=== PATIENT | female | born 1995 | race Caucasian/White ===

== ENCOUNTER 2024-09-10 21:15 | Inpatient (IN) | payer MEDICAID, SELFPAY ==
[2024-09-10 21:25] VITALS: BP 115/73; PULSE 153; RESP 18; TEMP 36.7; O2SAT 99; BMI 20.1
[2024-09-10 22:26] LABS: Basophils % 0.2 %; Eosinophils % 0.2 %; Hematocrit 43.9 % (36-47); Mean Corpuscular HGB Conc 31.2 g/dL (30-55); Mean Corpuscular Hemoglobin 26.9 pg (27-33); Mean Corpuscular Volume 86.1 fl (85-98); Mean Platelet Volume 11.2 fL (7.4-10.4); Monocytes # 0.4 10^3/uL (0.2-0.9); Monocytes % 4.6 %; Neutrophils # 5.57 10^3/uL (1.8-7.7); Neutrophils % 69.6 %; Nucleated Red Blood Cells % 0 %; Platelet Count 278 10^3/cmm (157-399); White Blood Count 8.01 10^3/uL (3.29-11.43)
[2024-09-10 22:35] LABS: Bilirubin Urine Negative (Negative); Blood Urine Negative (Negative); Glucose Urine UA Negative (Normal); Ketones Urine 3+ (Negative); Leukocyte Esterase Urine Negative (Negative); Nitrate Urine Negative (Negative); Protein Urine Negative (Negative); Specific Gravity, Urine 1.023 (1.005-1.030); Urine Appearance Clear (CLEAR); Urine Color Yellow (Yellow); pH Urine 5.5 (5-7)
[2024-09-10 22:40] LABS: Add Urine Microscopic? YES; Bacteria Urine Trace /hpf; Hyaline Casts Urine 1.65 /lpf; RBC Urine 0-2 /hpf (0-2); WBC Urine 0-5 /hpf (0-5)
[2024-09-10 22:43] LABS: Amphetamines Screen Urine Negative (Negative); Barbiturates Screen Urine Negative (Negative); Benzodiazepines Screen Urine Negative (Negative); Cocaine Screen Urine Negative (Negative); Opiate Screen Urine Negative (Negative); PCP Screen Urine Negative (Negative); THC Screen Urine Positive (Negative)
--- NOTE | 2024-09-10 22:46 | ED.C_ITS ---
HPI - Psych 2 General: Chief Complaint: Psychiatric Symptoms Stated Complaint: MHE Time Seen by Provider: 09/10/24 21:38 History of Present Illness: 29-year-old healthy female. She present s with ideation. She reports that she has had suicidal thoughts for some time, and family reports that she has admitted she worries herself driving her car, as she worries she could drive through the guardrail and intentionally crash. She has a history of depression. She was last admitted to psychiatric facility in eighth grade she says. She admits to marijuana use. Denies other substances. She is healthy otherwise. She has a history of cholecystectomy. Related Data Home Medications Medication Instructions Recorded Confirmed No Known Home Medications 09/10/24 09/10/24 Allergies Allergy/AdvReac Type Severity Reaction Status Date / Time codeine Allergy ADR-Gastrointestinal Verified 09/10/24 21:25 Upset diphenhydramine Allergy ADR-Halluci Verified 09/10/24 21:25 nating [facility] ED 2 Female Reproductive History: Date of last menstrual period: 09/05/24 Physical Exam 2 Const: COMMON NORMALS: no acute distress GENERAL APPEARANCE: cooperative; not ill appearing and not frail appearing HENMT: COMMON NORMALS: normocephalic, atraumatic and Normal external nose present HEAD & SCALP: normocephalic and atraumatic FACE & SINUS: normal facial exam and face symmetric NOSE: Normal external nose present Eye: COMMON NORMALS: Equal, round and reactive pupils present and EOMs intact bilaterally PUPIL: Yes Equal, round and reactive pupils present Neck/C-Spine: GENERAL: Yes trachea midline Chest: CHEST: Yes Symmetrical chest wall rise Resp: COMMON NORMALS: normal respiratory effort, No retractions, No use of accessory muscles and clear to auscultation bilaterally AUSCULTATION: clear to auscultation bilaterally Cardio: COMMON NORMALS: regular rate and regular rhythm RATE: regular rate RHYTHM: regular rhythm GI: COMMON NORMALS: Normal to inspection, nondistended, normoactive bowel sounds present Extremity: COMMON NORMALS: no pedal edema Neuro: [place] COMA SCALE: document GCS findings [place] coma scale eye opening: Spontaneous [place] coma scale verbal response: Orientated [place] coma scale motor response: Obey commands [place] coma scale total score: 15 S ENSORY EXAM: Yes extremities (intact) Psych: COMMON NORMALS: speech normal SPEECH: Yes normal speech Skin: COMMON NORMALS: no rashes or lesions noted GENERAL SKIN EXAM: no rashes or lesions noted Course 2 Vital Signs: Vital signs: Vital Signs Temperature 98.0 F 09/10/24 21:25 Pulse Rate 132 H 09/11/24 00:09 Respiratory Rate 16 09/10/24 23:51 Blood Pressure 129/93 09/11/24 00:09 Pulse Oximetry 98 09/11/24 00:09 Oxygen Delivery Me thod Room Air 09/10/24 23:51 MDM - Psych Medical Decision Making Initially quite tachycardic. EKG shows sinus tachycardia without other abnormality. She admits to significant anxiety. Her heart rate is now down to 100. She is normotensive. She is afebrile. Drug screen is positive for marijuana only. CBC is normal. Urinalysis is negative. Spoke with psychiatry. They are willing to admit. When the patient found that she was going to be admitted, she became quite anxious. She actually left her room, and tried to elope from the ER. We were able to talk her back to her room. She is given an injection of Geodon with some improvement. Her heart rate became elevated again during her panic attack when she was trying to elope. It has since improved again. Because of the tachycardia, TSH was ordered on her initial laboratory, and is 0.01. This may be a cause of the patient's anxiety as well as her tachycardia. I have consulted the medicine/hospitalist service regarding this. Medically, she is still stable. She is not hypertensive. I have ordered free and total T4 as well as T3. They will consult on the patient in regards to the hyperthyroidism. Lab Data 09/10/24 22:12 09/10/24 22:12 Laboratory Results WBC 8.01 10^3/uL (3.29-11.43) 09/10/24 22:12 RBC 5.10 10^6/uL (3.85-5.65) 09/10/24 22:12 Hgb 13.70 g/dL (11.27-16.99) 09/10/24 22:12 Hct 43.9 % (36-47) 09/10/24 22:12 MCV 86.1 fl (85-98) 09/10/24 22:12 MCH 26.9 pg (27-33) L 09/10/24 22:12 MCHC 31.2 g/dL (30-55) 09/10/24 22:12 RDW 12.0 % (12.1-15.1) L 09/10/24 22:12 Plt Count 278 10^3/cmm (157-399) 09/10/24 22:12 MPV 11.2 fL (7.4-10.4) H 09/10/24 22:12 Neut % (Auto) 69.6 % 09/10/24 22:12 Lymph % (Auto) 25.0 % 09/10/24 22:12 [place] % (Auto) 4.6 % 09/10/24 22:12 Eos % (Auto) 0.2 % 09/10/24 22:12 Baso % (Auto) 0.2 % 09/10/24 22:12 Neut # (Auto) 5.57 10^3/uL (1.8-7.7) 09/10/24 22:12 Lymph # (Auto) 2.0 10^3/uL (0.8-4.8) 09/10/24 22:12 [place] # (Auto) 0.4 10^3/uL (0.2-0.9) 09/10/24 22:12 Eos # (Auto) 0.0 10^3/uL (0.0-0.8) 09/10/24 22:12 Baso # (Auto) 0.0 10^3/uL (0.0-0.1) 09/10/24 22:12 Nucleated RBC % (auto) 0 % 09/10/24 22:12 Nucleated RBCs # 0.0 /100WBC 09/10/24 22:12 Sodium 142 mmol/L (136-145) 09/10/24 22:12 Potassium 3.7 mmol/L (3.5-5.1) 09/10/24 22:12 Chloride 103 mmol/L (98-107) 09/10/24 22:12 Carbon Dioxide 23 mmol/L (22-29) 09/10/24 22:12 Anion Gap 19.7 (5-19) H 09/10/24 22:12 BUN 9 mg/dL (6-20) 09/10/24 22:12 Creatinine 0.3 mg/dL (0.5-0.9) L 09/10/24 22:12 GFR Calculation 264.9 mL/min (90-130) H 09/10/24 22:12 Glucose 107 mg/dL (65-115) 09/10/24 22:12 Calculated Osmolality 293 mOsm/kg (285-295) 09/10/24 22:12 Calcium 9.5 mg/dL (8.5-10.5) 09/10/24 22:12 Total Bilirubin 0.8 mg/dL (0.15-1.2) 09/10/24 22:12 AST 30 U/L (0-32) 09/10/24 22:12 ALT 33 U/L (0-33) 09/10/24 22:12 Alkaline Phosphatase 117 U/L (35-105) H 09/10/24 22:12 Total Protein 6.8 g/dL (6.6-8.7) 09/10/24 22:12 Albumin 4.0 g/dL (3.5-5.2) 09/10/24 22:12 Globulin 2.8 g/dL (1.3-4.6) 09/10/24 22:12 TSH 0.01 uIU/mL (0.27-4.20) L 09/10/24 22:12 Free T4 5.76 ng/dL (0.82-1.77) H 09/10/24 22:10 Free T3 22.1 PG/ML (2.0-4.4) H 09/10/24 22:12 Urine Color Yellow (Yellow) 09/10/24 22:21 Urine Appearance Clear (CLEAR) 09/10/24 22:21 Urine pH 5.5 (5-7) 09/10/24 22:21 Ur Specific [place] 1.023 (1.005-1.030) 09/10/24 22:21 Urine Protein Negative (Negative) 09/10/24 22:21 Urine Glucose (UA) Negative (Normal) 09/10/24 22:21 Urine Ketones 3+ (Negative) H 09/10/24 22:21 Urine Blood Negative (Negative) 09/10/24 22:21 Urine Nitrate Negative (Negative) 09/10/24 22:21 Urine Bilirubin Negative (Negative) 09/10/24 22:21 Urine Urobilinogen 1.0 mg/dL (Negative) 09/10/24 22:21 Ur Leukocyte Esterase Negative (Negative) 09/10/24 22:21 Urine RBC 0-2 /hpf (0-2) 09/10/24 22:21 Urine WBC 0-5 /hpf (0-5) 09/10/24 22:21 Ur Squamous Epith Cells 6-10 /hpf (0-5) 09/10/24 22:21 Amorphous Sediment Not Reportable 09/10/24 22:21 Urine Bacteria Trace /hpf (NONE) 09/10/24 22:21 Hyaline Casts 1.65 /lpf 09/10/24 22:21 Salicylates < 0.3 mg/dL (3-10) L 09/10/24 22:12 Urine Opiates Screen Negative ng/mL (Negative) 09/10/24 22:21 Acetaminophen < 5.0 ug/mL (10-30) L 09/10/24 22:12 Ur Barbiturates Screen Negative ng/mL (Negative) 09/10/24 22:21 Ur Phencyclidine Scrn Negative ng/mL (Negative) 09/10/24 22:21 Ur Amphetamines Screen Negative ng/mL (Negative) 09/10/24 22:21 U Benzodiazepines Scrn Negative ng/mL (Negative) 09/10/24 22:21 Urine Cocaine Screen Negative ng/mL (Negative) 09/10/24 22:21 U Marijuana (THC) Screen Positive ng/mL (Negative) H 09/10/24 22:21 Ethyl Alcohol < 10 mg/dL (0-10) 09/10/24 22:12 No radiology studies performed this visit Discharge Plan Discharge Patient Disposition: Admitted As Inpatient Admit Provider: Donell Flores Clinical Impression: Suicidal ideation, Hyperthyroidism Condition: Stable Coding Level of Care Code ED Go Go Dancer for Jose Hamilton
[2024-09-10 22:52] LABS: Alanine Aminotransferase 33 U/L (0-33); Alkaline Phosphatase 117 U/L (35-105); Anion Gap 19.7 (5-19); Aspartate Amino Transferase 30 U/L (0-32); Blood Urea Nitrogen 9 mg/dL (6-20); Calcium 9.5 mg/dL (8.5-10.5); Carbon Dioxide 23 mmol/L (22-29); Chloride 103 mmol/L (98-107); Creatinine Clr Calc Pharmacy 247.4936; Globulin 2.8 g/dL (1.3-4.6); Glomerular Filtration Rate 264.9 mL/min (90-130); Glucose 107 mg/dL (65-115); Osmolality Calculated 293 mOsm/kg (285-295); Potassium 3.7 mmol/L (3.5-5.1); Sodium 142 mmol/L (136-145); Thyroid Stimulating Hormone 0.01 uIU/mL (0.27-4.20); Total Bilirubin 0.8 mg/dL (0.15-1.2); Total Protein 6.8 g/dL (6.6-8.7)
[2024-09-10 23:02] LABS: Acetaminophen < 5.0 ug/mL (10-30); Alcohol Level < 10 mg/dL (0-10); Salicylate < 0.3 mg/dL (3-10)
[2024-09-10] MEDS: ziprasidone 20 mg/mL SDV IM (23:17)
[2024-09-10] MEDS: water for injection-sterile 10 ML (23:18)
--- NOTE | 2024-09-10 23:20 | PC.NURSE ---
96 HH Pt served with copy of 96 Hour Hold rights by this RN and security. Pt alert and oriented, requesting to speak to her mother. Pt stated I don't even know where my kids are, I'm stress out and being in this room is making me feel like I'm going insane. 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
[2024-09-10 23:51] VITALS: BP 129/93; PULSE 142; RESP 16; O2SAT 97
[2024-09-11] VITALS (8 sets, daily range): BP systolic 90–135; BP diastolic 51–93; PULSE 94–142; RESP 16–18; TEMP 36.3–36.6; O2SAT 96–99
[2024-09-11] MEDS: hyDROXYzine 25 mg Capsule 50 MG PO (00:07)
--- NOTE | 2024-09-11 00:24 | US_ITS ---
WS: [id number] THYROID ULTRASOUND HISTORY: thyroid COMPARISON: None available. Right lobe: 1.4 cm x 1.6 cm x 4.8 cm (w x ap x l). Volume: 4.9 cm3. Heterogeneous slightly enlarged and hypervascular thyroid. There are a few fibrous septa within the g land. No mass. Left lobe: 1.5 cm x 1.4 cm x 4.6 cm (w x ap x l). Volume: 4.8 cm3. Heterogeneous, slightly enlarged heterogeneous gland with mild increased vascularity. No mass. Isthmus: 0.4 cm. US/US thyroid [id number] IMPRESSION: Findings of Rehan's thyroiditis.
--- NOTE | 2024-09-11 00:51 | P.CONIM_ITS ---
Providers/Reason For Consult 2 Consulting Physician/Specialty*: Hospitalist Reason for Consult*: Hyperthyroid Attending Physician: Donell Flores MD History of Present Illness History of Present Illness Berna Astorga is a 29 year old female presented to the hospital with suicidal ideation, she is on 96-hour hold, drug seen positive for marijuana, workup in the ER consistent with low TSH, free T4 T3 thyroid ultrasound requested, at the time of my evaluation patient is awake and alert, no signs of thyroid storm, tachycardia heart rate 130 blood pressure stable, no fever agitation or tremors noted. Patient is stating that for last few years she has been losing weight, it is hard for her to gain weight, she is not endorsing nausea vomiting, diarrhea, significant hair loss. Last was 2 years ago. No recent fever. Patient does endorse periodic palpitations. Review of Systems 2 Eyes: Denies: change in vision ENMT: Denies: throat pain Card: Reports: palpitations; Denies: chest pain Resp: Denies: dyspnea Psych: Reports: anxiety, depression, mood swings and suicidal ideation Medications/Allergies Home Medications Medication Instructions Recorded Confirmed Last Taken Type No Known Home Medications 09/10/24 09/10/24 Unknown History Allergies Allergy/AdvReac Type Severity Reaction Status Date / Time codeine Allergy ADR-Gastrointestinal Verified 09/10/24 21:25 Upset diphenhydramine Allergy ADR-Halluci Verified 09/10/24 21:25 nating Current Medications Generic Name Dose Route Start Last Admin Trade Name Freq PRN Reason Stop Dose Admin Hydroxyzine Pamoate 50 mg 09/10/24 23:50 09/11/24 00:07 Hydroxyzine 25 Mg Capsule PO 50 mg NOW PRN Administration ANXIETY PFSH Acute 2 Female Reproductive History: Date of last menstrual period: 09/05/24 Vitals/I&O/Wt Last Vital Signs Temp 98.0 F 09/10/24 21:25 Pulse 132 H 09/11/24 00:09 Resp 16 09/10/24 23:51 BP 129/93 09/11/24 00:09 Pulse Ox 98 09/11/24 00:09 O2 Del Method Room Air 09/10/24 23:51 09/10/24 09/10/24 09/11/24 14:59 22:59 06:59 Intake Total 0 / 0 Balance 0 / 0 Weight last 48 hrs Weight 54.885 kg Physical Exam 2 Narrative: lean female GCS 15 Nonfocal neuroexam No active tremors S1, S2 tachycardia Pleasant and cooperative No active tremors Abdomen soft Nonfocal neuroexam Pleasant and cooperative during my evaluation Currently on room air Palpable thyroid gland nodularity, nontender Data 09/10/24 22:12 09/10/24 22:12 A&P Assessment and plan (1) Suicidal ideation: (2) Hyperthyroidism: Plan Symptomatic hyperthyroid features Patient endorsing weight loss, palpitations No active signs of hyperthyroid storm TSH is low, check free T4, T3, thyroid ultrasound Depending on these results further plan will be made, No recent sickness, her was 2 years ago 96-hour hold for suicidal ideation Regular diet Following scenarios will be considered depending on her workup If her T4 is normal, check free T3 if both normal it could be subclinical hyperthyroid If her T4 is normal and T3 high it could be T3 thyrotoxicosis TSH low, T4 high: Primary hyperthyroidism, thyroid uptake studies will be needed, increased diffuse uptake could be Graves' disease, nodular uptake could be toxic adenoma that will need further investigation depending on single nodule versus multiple If her thyroid uptake is low, then thyroglobulin needs to be measured: Thyroglobulin low could be exogenous uptake, thyroglobulin high could be thyroiditis, iodine exposure Consult Attestations 2 Medical Necessity Statement: As per NPU Diagnoses Suicidal ideation R45.851 Hyperthyroidism E05.90
[2024-09-11 00:58] LABS: T3 Free 22.1 PG/ML (2.0-4.4)
[2024-09-11 00:59] LABS: Free T4 Free Thyroxine 5.76 ng/dL (0.82-1.77)
[2024-09-11] MEDS: propranolol 20 mg Tablet 10 MG PO ×4 (01:26→21:05)
[2024-09-11] MEDS: methIMAzole 5 MG Tablet PO ×4 (01:39→21:03)
--- NOTE | 2024-09-11 06:49 | PC.NURSE ---
Received call from [facility] in Nuclear Medicine questioning the US Thyroid study the physician had ordered and wanted it clarified with the physician if the patient was going to remain in the hospital long enough for the test. Notified the ordering physician Dr. Flores regarding timeline for the study and if it needed to outpt. NNO were received. Returned phone call to [facility] in Nuclear Medicine, who was not satisfied with the response. Gave physician information to Nuclear Medicine to be able to speak w/the physician regarding his concerns. Will report off to dayshift team.
--- NOTE | 2024-09-11 06:54 | PC.NURSE ---
Received call back from [facility] in Nuclear Medicine stating that he spoke w/Dr. Flores and the test will be scheduled for otpt study d/t pt receiving one dose of thyroid medication. Will update day team.
[2024-09-11] MEDS: OLANZapine 5 mg ODT PO (08:42)
--- NOTE | 2024-09-11 11:04 | P.PN_ITS ---
Vitals/I&O/Wt Last Vital Signs Temp 97.5 F L 09/11/24 08:00 Pulse 114 H 09/11/24 08:00 Resp 17 09/11/24 08:00 BP 110/67 09/11/24 08:00 Pulse Ox 97 09/11/24 08:00 O2 Del Method Room Air 09/11/24 08:00 09/10/24 09/11/24 09/11/24 22:59 06:59 14:59 Intake Total 0 / 0 Balance 0 / 0 Weight last 48 hrs Weight 54.885 kg Data 09/10/24 22:12 09/10/24 22:12 A&P Assessment and plan (1) Suicidal ideation: (2) Hyperthyroidism: Plan Symptomatic hyperthyroid features Has been started on methimazole. Unable to complete thyroid uptake scan. Thyroid ultrasound reviewed, findings of possible Rehan's thyroiditis. Discussed with assembler fishing floats, difficult to distinguish Graves' versus Rehan's on ultrasound. Doppler study also appears not have been completed. Check anti-TPO antibodies. Check TRAb antibodies. Thyroid-stimulating antibodies are pending. Recheck free T4, free T3 in about a week. Depending on antibody results, in case indicating Rehan, consider discontinuation methimazole at that time and reassessment of thyroid studies. In case of Graves', continue methimazole. Continue propranolol. Monitor for risk of hypotension. Reviewed blood pressures. Follow-up with endocrinology in office. No recent sickness, her was 2 years ago 96-hour hold for suicidal ideation. Reviewed psychiatry note. Attestations 2 Medical Necessity Statement*: Continue admission for assessment and management of suicidal ideation, symptomatic hyperthyroidism. and High MDM includes amount and/or complexity of data reviewed/ordered [ previous or external records, resulted lab(s)/test(s), ordered lab(s)/test(s) and other healthcare professional discussion] and described risk of complication, morbidity or mortality of management as documented Diagnoses Suicidal ideation R45.851 Hyperthyroidism E05.90
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
[2024-09-12] VITALS (7 sets, daily range): BP systolic 101–115; BP diastolic 51–75; PULSE 87–103; RESP 14–20; TEMP 36.6–37.1; O2SAT 96–99
[2024-09-12] MEDS: sertraline 50 mg Tablet 75 MG PO ×2 (01:27→08:58)
[2024-09-12] MEDS: propranolol 20 mg Tablet 10 MG PO ×3 (08:57→20:07)
[2024-09-12] MEDS: methIMAzole 5 MG Tablet PO ×3 (08:57→20:07)
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
[2024-09-12] MEDS: nicotine 2 mg Gum BUCCAL (16:27)
[2024-09-12] MEDS: ondansetron 4 MG Tablet PO (17:30)
[2024-09-13] VITALS (7 sets, daily range): BP systolic 97–126; BP diastolic 55–83; PULSE 79–109; RESP 14–17; TEMP 36.6–37; O2SAT 95–99
[2024-09-13] MEDS: methIMAzole 5 MG Tablet PO ×3 (09:47→20:35)
[2024-09-13] MEDS: sertraline 50 mg Tablet 75 MG PO (09:47)
[2024-09-13] MEDS: ondansetron 4 MG Tablet PO (09:47)
[2024-09-13] MEDS: propranolol 20 mg Tablet 10 MG PO ×3 (09:47→20:34)
[2024-09-13] MEDS: nicotine 2 mg Gum BUCCAL (09:48)
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
[2024-09-13] MEDS: hyDROXYzine 25 mg Capsule 50 MG PO (20:34)
[2024-09-14 04:00] VITALS: BP 95/56; PULSE 101; RESP 16; TEMP 36.7; O2SAT 99
[2024-09-14 07:46] VITALS: BP 95/60; PULSE 91; RESP 16; TEMP 36.9; O2SAT 98
[2024-09-14] MEDS: ondansetron 4 MG Tablet PO (08:48)
[2024-09-14] MEDS: methIMAzole 5 MG Tablet PO (08:48)
[2024-09-14] MEDS: sertraline 50 mg Tablet 75 MG PO (08:48)
[2024-09-14] MEDS: nicotine 2 mg Gum BUCCAL (08:48)
[2024-09-14] MEDS: propranolol 20 mg Tablet 10 MG PO (08:48)
[2024-09-14 09:04] LABS: Thyroid Peroxidase Antobodies 265 IU/mL (<9)
[2024-09-14 09:31] VITALS: BP 95/60; PULSE 91; RESP 16; TEMP 36.9; O2SAT 98
[2024-09-16 03:39] LABS: Thyroid Stimulating Immunoglob 208 % baseline (<140)
== END 2024-09-14 10:45 | disposition home or self-care (01) | DRG 644 ==
LOC: ER 23:01 → NP 23:39
PROVIDERS: Internal Medicine; Admitting Provider Psychiatry & Neurology Psychiatry; Emergency Provider Emergency Medicine; Visit Provider Psychiatry & Neurology Psychiatry
DX: E05.90 Thyrotoxicosis, unspecified without thyrotoxic crisis or storm (principal); F34.81 Disruptive mood dysregulation disorder; R45.851 Suicidal ideations; R00.0 Tachycardia, unspecified; F12.90 Cannabis use, unspecified, uncomplicated; R63.6 Underweight; Z68.20 Body mass index [BMI] 20.0-20.9, adult; F43.10 Post-traumatic stress disorder, unspecified; F32.A Depression, unspecified; F41.9 Anxiety disorder, unspecified; Z81.8 Family history of other mental and behavioral disorders
CPT/HCPCS: 36415; 76536; 80053; 80306; 80307; 81001; 83516; 84439; 84443; 84445; 84481; 85025; 86376; 96372; 97150; 97165; 99285; J3486; Q0162